=== PATIENT | male | born 1935 | race Caucasian/White ===

== ENCOUNTER 2016-12-15 07:46 | Inpatient (IN) | payer OTHER, MEDICARE ==
[2016-12-15] MEDS ORDERED: MORPHINE SULFATE 2 MG/ML SYRINGE IVP ONE (08:04)
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
[2016-12-15] MEDS ORDERED: SODIUM CHLORIDE 0.9% 1,000 ML IV ONE (09:28)
[2016-12-15] MEDS ORDERED: HYDROmorphone 1 MG/ML 1 ML SYRINGE IVP PRN (09:29)
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
[2016-12-15 11:09] VITALS: BMI 33.5
[2016-12-15] MEDS: HYDROcodone/APAP 5-325MG 1 EACH TAB PO PRN (14:13)
[2016-12-15] MEDS: HEPARIN SODIUM,PORCINE 5,000 UNIT/ML 1 ML VIAL SQ SCH ×2 (14:14→20:47)
[2016-12-15] MEDS ORDERED: CALCIUM CARBONATE 500 MG CHEWABLE PO PRN (14:51)
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
[2016-12-15] MEDS ORDERED: ONDANSETRON 4 MG/2 ML VIAL IVP PRN (18:27)
[2016-12-16] MEDS: HEPARIN SODIUM,PORCINE 5,000 UNIT/ML 1 ML VIAL SQ SCH ×2 (08:03→20:51)
[2016-12-16 15:42] LABS: Basophils % (A) 0 %; CH 31.8; CHCM 33.7; Eosinophils % (A) 0 %; HCT 34.3 % (39.0-53.0); HDW 2.55; HGB 11.5 gm/dL (13.0-17.5); Luc % (Auto) 2; Lymphocytes # (A) 0.5 k/uL (1.0-4.8); Lymphocytes % (A) 8 %; MCH 31.7 pg (25.0-35.0); MCHC 33.5 g/dL (31.0-37.0); MCV 94.7 fL (80.0-100.0); Mean Platelet Volume 7.7; Monocytes # (A) 0.6 k/uL (0-1.0); Monocytes % (A) 9 %; Neutrophils % (A) 81 %; RBC 3.63 m/uL (4.30-5.90); WBC 6.2 k/uL (3.8-10.6); WBC (Perox) 6.64
[2016-12-16 15:48] LABS: INR 1.2 (<1.1); Prothrombin Time 11.8 sec (9.0-12.0)
[2016-12-16 15:53] LABS: Anion Gap 6 mmol/L; Blood Urea Nitrogen 14 mg/dL (9-20); Calcium 8.5 mg/dL (8.4-10.2); Carbon Dioxide 28 mmol/L (22-30); Chloride 103 mmol/L (98-107); Glucose 175 mg/dL (74-99); Non-African American GFR(MDRD) >60 (>60 ml/min/1.73 sqM); Potassium 4.1 mmol/L (3.5-5.1); Sodium 137 mmol/L (137-145)
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
[2016-12-17] MEDS: HYDROcodone/APAP 5-325MG 1 EACH TAB PO PRN (00:59)
[2016-12-17] MEDS: HEPARIN SODIUM,PORCINE 5,000 UNIT/ML 1 ML VIAL SQ SCH ×2 (08:38→20:56)
[2016-12-17] MEDS: traMADol 50 MG TAB PO SCH ×4 (08:39→21:00)
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
--- NOTE | 2016-12-17 11:44 | XR ---
EXAMINATION TYPE: XR chest 1V DATE OF EXAM: 12/17/2016 9:47 AM COMPARISON: 12/15/2016 HISTORY: 81-year-old male COPD preoperative exam before knee surgery TECHNIQUE: Single frontal view of the chest is obtained. FINDINGS: Heart appears borderline enlarged. There is a large retrocardiac density with air lucency. Mild inter stitial opacities are also noted with some hazy left basilar opacity. IMPRESSION: 1. Suspect a large hiatal hernia into the lower chest. 2. Correlate to exclude mild CHF with pulmonary vascular congestion. 3. Trace left pleural effusion or some basilar atelectasis.
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
[2016-12-17 15:31] LABS: Appearance,Urine Cloudy (Clear); Bacteria,Urine Occasional /hpf; Bilirubin,Urine Negative (Negative); Glucose,Urine (UA) 3+ (Negative); Leukocyte Esterase,Urine Large (Negative); Mucus,Urine Moderate /hpf; Nitrite,Urine Negative (Negative); Particle Count 8701; Protein,Urine 1+ (Negative); RBC,Urine 55 /hpf (0-5); Specific Gravity,Urine 1.016 (1.001-1.035); UA Billing (MACRO vs. MICRO) MICRO; Urobilinogen,Urine <2.0 mg/dL (<2.0); WBC,Urine 83 /hpf (0-5)
[2016-12-17 17:43] LABS: Ketones,Urine 3+ (Negative)
[2016-12-18 07:08] LABS: Basophils % (A) 0 %; CHCM 34.4; Eosinophils % (A) 1 %; HCT 30.7 % (39.0-53.0); HDW 2.75; HGB 10.5 gm/dL (13.0-17.5); Luc # (Auto) 0.19; Luc % (Auto) 5; Lymphocytes # (A) 0.6 k/uL (1.0-4.8); Lymphocytes % (A) 15 %; MCH 32.1 pg (25.0-35.0); MCHC 34.4 g/dL (31.0-37.0); MCV 93.5 fL (80.0-100.0); Mean Platelet Volume 7.3; Monocytes # (A) 0.6 k/uL (0-1.0); Monocytes % (A) 13 %; Neutrophils # (A) 2.8 k/uL (1.3-7.7); Neutrophils % (A) 66 %; RBC 3.28 m/uL (4.30-5.90); RDW 13.1 % (11.5-15.5); WBC 4.2 k/uL (3.8-10.6); WBC (Perox) 4.78
[2016-12-18 07:17] LABS: ALT 38 U/L (21-72); AST 31 U/L (17-59); Alkaline Phosphatase 50 U/L (38-126); Anion Gap 5 mmol/L; Blood Urea Nitrogen 10 mg/dL (9-20); Carbon Dioxide 28 mmol/L (22-30); Chloride 103 mmol/L (98-107); Glucose 126 mg/dL (74-99); Magnesium 1.8 mg/dL (1.6-2.3); Non-African American GFR(MDRD) >60 (>60 ml/min/1.73 sqM); Phosphorous 2.6 mg/dL (2.5-4.5); Potassium 3.7 mmol/L (3.5-5.1); Sodium 136 mmol/L (137-145); Total Bilirubin 0.9 mg/dL (0.2-1.3)
[2016-12-18] MEDS: traMADol 50 MG TAB PO SCH ×3 (10:40→18:25)
--- NOTE | 2016-12-18 12:21 | PN ---
Mr. Rodolfo Garcia is an 81-year-old male has a fall with tibia fibular fracture. Patient has comminuted fracture and was open reduction internal fixation and scheduled for surgery today. Hemodynamic status is stable. Blood pressure 140/76, respiratory rate 16, pulse 83, temperature 97, saturation 96%. HEENT: Unremarkable. NECK: Supple. LUNGS: Good air entry bilaterally. HEART: Regular rate and rhythm. ABDOMEN: Soft. NEUROLOGICAL EXAMINATION: The patient had some episodes of confusion. Work-up has been performed, which revealed possible urinary tract infection. Culture results and reports are pending. However, urinalysis suggestive of ongoing infection. Patient empirically has been started on Rocephin. Other laboratory data reviewed. Medications reviewed as well. White cell count 4200, hemoglobin 10, hematocrit 30, platelet count 124,000. Sodium 137, potassium 3.7. BUN 10., creatinine 0.59. Chest x-ray performed on 12/17/2016 reviewed. Hiatal hernia is present. Mild interstitial edema and pleural effusion cannot be excluded. IMPRESSION: 1. Status post fall and left tibia-fibula fracture. 2. Altered mental status and encephalopathy related to baseline dementia, pain medications, systemic inflammatory response syndrome like process sepsis associated with urinary tract infection. The patient has been started on IV Rocephin. 3. Some component of confusion and will monitor and observe, likely related to above.
[2016-12-18] MEDS ORDERED: IV FLUID CONTINUATION 1,000 ML IV ONE (14:06)
[2016-12-18] MEDS ORDERED: MIDAZOLAM 2 MG/2 ML VIAL ONE (14:43)
[2016-12-18] MEDS ORDERED: MORPHINE SULFATE (PF) 0.3 MG/0.3 ML SYR ONE (14:43)
[2016-12-18] MEDS ORDERED: KETAMINE 10 MG/ML 20 ML VIAL ONE (14:43)
[2016-12-18] MEDS ORDERED: SODIUM CHLORIDE 0.9% 50 ML with ceFAZolin 2,000 MG IV ONE ×2 (14:52)
[2016-12-18] MEDS ORDERED: ceFAZolin 1,000 MG in SODIUM CHLORIDE 0.9% 1,000 ML IRRIGATION ONE (15:23)
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
[2016-12-18] MEDS ORDERED: HYDROcodone/APAP 7.5-325MG 1 EACH TAB PO PRN (16:22)
[2016-12-18] MEDS ORDERED: NALOXONE 0.4 MG/ML 1 ML VIAL IV PRN ×2 (16:22→17:21)
[2016-12-18] MEDS ORDERED: Acetaminophen-Codeine 300-30mg TAB PO PRN (16:22)
[2016-12-18] MEDS ORDERED: MORPHINE SULFATE 2 MG/ML SYRINGE IVP PRN (16:22)
[2016-12-18] MEDS ORDERED: LACTATED RINGERS 1,000 ML IV ONE (16:32)
--- NOTE | 2016-12-18 16:32 | XR ---
FLUOROSCOPY 13 seconds of fluoroscopy time were utilized during internal fixation of the proximal left tibia. 2 i mages document the procedure.
[2016-12-18] MEDS ORDERED: diphenhydrAMINE 50 MG/ML 1 ML VIAL IVP PRN (17:21)
[2016-12-18] MEDS: HEPARIN SODIUM,PORCINE 5,000 UNIT/ML 1 ML VIAL SQ SCH (22:26)
[2016-12-19] MEDS: MORPHINE SULFATE 2 MG/ML SYRINGE IVP PRN ×2 (00:05→10:26)
[2016-12-19] MEDS: ceFAZolin 2 GM in SODIUM CHLORIDE 0.9% 100 ML IVPB SCH ×2 (00:22→08:18)
--- NOTE | 2016-12-19 08:08 | P.PN ---
Progress Note - Text 0845 Anesthesia POD 1. Patient is status post ORIF of left tibial plateau fracture under spinal anesthesia with intra-thecal preservative free morphine the 100 g. Minimal pruritus, good post-op analgesia, and no headache or other complications.
[2016-12-19] MEDS: HEPARIN SODIUM,PORCINE 5,000 UNIT/ML 1 ML VIAL SQ SCH ×2 (08:18→20:31)
[2016-12-19] MEDS: traMADol 50 MG TAB PO SCH ×4 (08:18→20:31)
[2016-12-19] MEDS: HYDROcodone/APAP 5-325MG 1 EACH TAB PO PRN ×2 (09:23→16:36)
[2016-12-19 09:47] LABS: Basophils % (A) 0 %; CH 32.1; CHCM 34.4; Eosinophils % (A) 0 %; HCT 28.5 % (39.0-53.0); HDW 2.83; HGB 9.8 gm/dL (13.0-17.5); Luc # (Auto) 0.21; Luc % (Auto) 4; Lymphocytes # (A) 0.9 k/uL (1.0-4.8); Lymphocytes % (A) 15 %; MCH 32.4 pg (25.0-35.0); MCHC 34.5 g/dL (31.0-37.0); MCV 93.9 fL (80.0-100.0); Mean Platelet Volume 7.9; Monocytes # (A) 0.8 k/uL (0-1.0); Monocytes % (A) 14 %; Neutrophils # (A) 3.9 k/uL (1.3-7.7); Neutrophils % (A) 67 %; RBC 3.03 m/uL (4.30-5.90); RDW 13.2 % (11.5-15.5); WBC 5.9 k/uL (3.8-10.6); WBC (Perox) 5.63
--- NOTE | 2016-12-19 10:19 | PN ---
Rodolfo Garcia who is seen, evaluated, and examined. He is postop day #1 of left tibiofibular repair. Clinically doing well, awake, alert. His mental status is significantly improved compared to last 24 to 48 hours. His blood pressure 140/60, respiratory rate 16, pulse 88, temperature 98, saturation 96% on 2 L oxygen. HEENT: Unremarkable. NECK: Supple. LUNGS: Good air entry bilaterally without significant rales, rhonchi or rub. HEART: Regular rate and rhythm, S1 and S2 audible. Abdomen is soft. No rebound or rigidity. EXTREMITIES: +1 peripheral pulses. NEUROLOGICAL EXAMINATION: Otherwise, awake, alert. Urine culture results, no growth so far. His chest x-ray performed 12/17/2016 has been reviewed. Large hiatal hernia is present. Some interstitial edema cannot be excluded. Current medications reviewed. IMPRESSION: 1. Left tibiofibular fracture postoperative day #1 of open reduction and internal fibrillation of left tibial plateau under spinal anesthesia. 2. Urinary tract infection. 3. Altered mental status, multifactorial process. 4. Large hiatal hernia. Plan and recommendation is to continue supportive care. Follow clinical course for pain management. Continue empiric antibiotics. Maintain patient on DVT prophylaxis and will initiate patient on peptic ulcer disease prophylaxis as well. Will follow.
[2016-12-19] MEDS: PANTOPRAZOLE 40 MG TABLET PO SCH (20:31)
[2016-12-20] MEDS: HYDROcodone/APAP 5-325MG 1 EACH TAB PO PRN ×2 (04:20→11:09)
[2016-12-20] MEDS: PANTOPRAZOLE 40 MG TABLET PO SCH (09:14)
[2016-12-20] MEDS: traMADol 50 MG TAB PO SCH ×2 (09:14→16:02)
[2016-12-20] MEDS: HEPARIN SODIUM,PORCINE 5,000 UNIT/ML 1 ML VIAL SQ SCH (09:14)
[2016-12-20] MEDS ORDERED: BISACODYL 10 MG SUPP RECTAL STA (11:24)
--- NOTE | 2016-12-20 11:47 | P.PN ---
Subjective Principal diagnosis: Left tibial plateau fracture Patient seen today resting in his hospital bed. Patient admits to some increasing discomfort in the left knee. Denies any chest pain or shortness of breath. She states he hasn't had a bowel movement yet. Denies any fevers or chills. Objective - Vital Signs Vital signs: Vital Signs Temp 98.0 F 12/20/16 07:42 Pulse 98 12/20/16 07:42 Resp 16 12/20/16 07:42 BP 147/73 12/20/16 07:42 Pulse Ox 93 L 12/20/16 07:42 Intake & Output 12/19/16 12/20/16 12/20/16 18:59 06:59 18:59 Intake Total 1440 1000 480 Output Total 3900 725 Balance -2460 1000 -245 Intake: IV 1000 Sodium Chloride 0.9% 1, 900 000 ml @ 100 mls/hr IV . Q10H ONE Rx#:[id number] ceFAZolin 2 gm In Sodium 100 Chloride 0.9% 100 ml @ 100 mls/hr IVPB Q8HR COLLIN Rx#:[id number] Oral 1440 480 Output: Urine 3900 725 Uretheral (Poon) 1100 Other: Voiding Method Urinal Urinal # Voids 5 - Exam Left lower extremity: Patient has hinge knee brace locked in full extension, Derek bandages in good position. Incision is clean, dry and intact. Notable swelling surrounding the left knee, also edema in the lower extremity. Calf is soft, no tenderness with palpation. His dorsal pedis pulses 2+. Plantar flexion, dorsiflexion, EHL, FHL are intact. Sensory exam to light touch throughout the extremity is intact. - Labs CBC & Chem 7: 12/19/16 07:23 12/18/16 06:34 Assessment and Plan Plan: Assessment: 1. Postop day #2 status post ORIF left tibial plateau fracture 2. Constipation Plan: 1. Pain control, continue supportive oral medication 2. Use stool softeners and suppository today to help with constipation 3. Nonweightbearing, continue use of brace 4. Daily dressing changes/ice and elevate 5. GI and DVT prophylaxis, continue heparin in hospital, we'll discharge to rehab on Xarelto 10 mg 6. Medical recommendations 7. Discharge planning: Patient will likely be discharged to rehab today Time with Patient: Less than 30
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
[2016-12-20 14:54] VITALS: BP 128/71; PULSE 96; RESP 15; TEMP 97.3
--- NOTE | 2016-12-20 17:52 | PN ---
Rodolfo Garcia is an 81-year-old male, seen, evaluated, examined. Patient has been clinically doing well, awake and alert, breathing comfortably. He is postop day #2 for open reduction and internal fixation and left tibia plateau fracture. Clinically overall hemodynamically stable. Last set of vitals include blood pressure is 147/73, respiratory rate 15, pulse 96, temperature 97.2%. HEENT: Unremarkable. NECK: Supple. LUNGS: Good air entry bilaterally. HEART: Regular rate and rhythm. ABDOMEN: Soft. NEUROLOGICAL EXAMINATION: Awake and alert. No focal neurological deficits. IMPRESSION: 1. Status post fall with left tibial plateau fracture. 2. Urinary tract infection with cultures are negative. Patient has been treated with IV antibiotics. 3. Altered mental status, encephalopathy, likely due to multifactorial process including being hospitalized, baseline dementia and pain medications along with sepsis associated with urinary tract infection. Clinically has improved significantly and back to baseline. I agree with discharge planning and follow-up in outpatient setting. Patient to follow the primary care provider Dr. Tate Del Cid.
== END 2016-12-20 18:16 | DRG 492 ==
LOC: EC 07:46 → INTOOBSV 09:28 → 3SUR 09:28 → OBSVTOIN 12-17 12:48
PROVIDERS: ADMIT Orthopaedic Surgery; ATTEND Orthopaedic Surgery
PROC: 0QSH04Z Reposition Left Tibia with Internal Fixation Device, Open Approach (ICD-10-PCS; principal; 2016-12-18 15:00)
DX: S82.142A Displaced bicondylar fracture of left tibia, initial encounter for closed fracture (principal); G93.40 Encephalopathy, unspecified; F03.90 Unspecified dementia, unspecified severity, without behavioral disturbance, psychotic disturbance, mood disturbance, and anxiety; N39.0 Urinary tract infection, site not specified; V89.2XXA Person injured in unspecified motor-vehicle accident, traffic, initial encounter; F41.9 Anxiety disorder, unspecified; K44.9 Diaphragmatic hernia without obstruction or gangrene; K59.00 Constipation, unspecified; Z82.49 Family history of ischemic heart disease and other diseases of the circulatory system; Z79.899 Other long term (current) drug therapy
CPT/HCPCS: 71010; 80048; 80053; 81001; 83735; 84100; 85025; 85610; 87086; 93005; 94760; 96361; 96372; 96374; 96375; 99285

== ENCOUNTER 2017-02-11 16:40 | Inpatient (IN) | payer MEDICARE ==
[2017-02-11 20:33] LABS: Basophils % (A) 0 %; CH 31.3; CHCM 32.7; Eosinophils # (A) 0.1 k/uL (0-0.7); Eosinophils % (A) 1 %; HCT 36.4 % (39.0-53.0); HDW 2.65; Luc # (Auto) 0.18; Luc % (Auto) 2; Lymphocytes # (A) 0.6 k/uL (1.0-4.8); Lymphocytes % (A) 7 %; MCH 31.7 pg (25.0-35.0); MCHC 32.9 g/dL (31.0-37.0); MCV 96.1 fL (80.0-100.0); Mean Platelet Volume 6.6; Monocytes # (A) 0.8 k/uL (0-1.0); Monocytes % (A) 10 %; Neutrophils # (A) 6.6 k/uL (1.3-7.7); Neutrophils % (A) 80 %; RBC 3.79 m/uL (4.30-5.90); RDW 13.1 % (11.5-15.5); WBC 8.2 k/uL (3.8-10.6); WBC (Perox) 8.98
[2017-02-11 20:41] LABS: Anion Gap 11 mmol/L; Blood Urea Nitrogen 15 mg/dL (9-20); Carbon Dioxide 26 mmol/L (22-30); Chloride 103 mmol/L (98-107); Glucose 100 mg/dL (74-99); Non-African American GFR(MDRD) >60 (>60 ml/min/1.73 sqM); Potassium 4.2 mmol/L (3.5-5.1); Sodium 140 mmol/L (137-145)
[2017-02-11] MEDS: SODIUM CHLORIDE 0.9% 1,000 ML IV SCH (20:45)
[2017-02-12] MEDS: SODIUM CHLORIDE 0.9% 1,000 ML IV SCH ×2 (07:43→14:57)
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
[2017-02-12 09:39] LABS: ALT 734 U/L (21-72); AST 325 U/L (17-59); Alkaline Phosphatase 119 U/L (38-126); Anion Gap 9 mmol/L; Blood Urea Nitrogen 11 mg/dL (9-20); Calcium 9.2 mg/dL (8.4-10.2); Carbon Dioxide 25 mmol/L (22-30); Chloride 105 mmol/L (98-107); Glucose 107 mg/dL (74-99); Non-African American GFR(MDRD) >60 (>60 ml/min/1.73 sqM); Potassium 4.2 mmol/L (3.5-5.1); Sodium 139 mmol/L (137-145); Total Bilirubin 3.9 mg/dL (0.2-1.3)
[2017-02-12 13:43] LABS: Hepatitis B Surface Ag Index 0.07
[2017-02-12 13:49] LABS: Hepatitis B Core IgM Index 0.04
[2017-02-12 14:01] LABS: Hepatitis C Virus IgG Index 0.01
[2017-02-12 14:03] LABS: Hepatitis C Virus IgG Ab Negative (Negative)
[2017-02-12] MEDS ORDERED: traMADol 50 MG TAB PO PRN (14:22)
[2017-02-12] MEDS ORDERED: ALPRAZolam 0.25 MG TAB PO PRN (14:25)
[2017-02-12] MEDS ORDERED: HYDROmorphone 1 MG/ML 1 ML SYRINGE IVP PRN (14:25)
--- NOTE | 2017-02-12 14:51 | XR ---
EXAMINATION TYPE: XR chest 1V portable DATE OF EXAM: 02/12/2017 2:46 PM CLINICAL HISTORY: Difficulty breathing and CHF. TECHNIQUE: Single AP portable upright view of the chest is obtained. COMPARISON: Chest x-ray from December 17, 2016 FINDINGS: There is chronic parenchymal change seen bilaterally. There is stable mild cardiomegaly. R etrocardiac opacity consistent with large hiatal hernia or fixed intrathoracic stomach is redemonstra radha. Cannot exclude small bilateral pleural effusions which is not changed from prior study. No new s uspicious focal airspace opacity or pneumothorax is seen bilaterally. Osseous structures are intact. IMPRESSION: Redemonstration of large hiatal hernia or intrathoracic stomach. There is persistent mild cardiomegaly with perhaps small bilateral pleural effusions. No significant change from prior study is seen. No new suspicious focal infiltrate is noted.
[2017-02-12] MEDS: ASPIRIN 81 MG CHEW PO SCH (14:58)
[2017-02-12 16:10] LABS: Appearance,Urine Clear (Clear); Bilirubin,Urine 1+ (Negative); Glucose,Urine (UA) 3+ (Negative); Ketones,Urine Negative (Negative); Leukocyte Esterase,Urine Negative (Negative); Mucus,Urine Rare /hpf; Nitrite,Urine Negative (Negative); Particle Count 430; Protein,Urine Negative (Negative); RBC,Urine 11 /hpf (0-5); Specific Gravity,Urine 1.005 (1.001-1.035); UA Billing (MACRO vs. MICRO) MICRO; Urobilinogen,Urine <2.0 mg/dL (<2.0); WBC,Urine 1 /hpf (0-5)
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
[2017-02-12] MEDS ORDERED: MELATONIN 3 MG TABLET PO SCH (21:00)
[2017-02-13] MEDS: SODIUM CHLORIDE 0.9% 1,000 ML IV SCH ×2 (06:23→13:39)
[2017-02-13] MEDS ORDERED: IV FLUID CONTINUATION 350 ML IV ONE (07:18)
[2017-02-13] MEDS ORDERED: GLUCAGON 1 MG/ML VIAL ONE (07:30)
[2017-02-13] MEDS ORDERED: PROPOFOL 10 MG/ML 20 ML VIAL IV ONE (07:30)
[2017-02-13] MEDS ORDERED: PANTOPRAZOLE 40 MG TABLET PO SCH (07:30)
[2017-02-13] MEDS ORDERED: SODIUM CHLORIDE 0.9% 1,000 ML IV ONE (08:08)
[2017-02-13] MEDS ORDERED: IOHEXOL 300 MG/ML 50 ML BOTTLE MISCELLANE ONE (08:10)
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
--- NOTE | 2017-02-13 08:52 | FL ---
EXAMINATION TYPE: FL ERCP pancreatic duct only DATE OF EXAM: 02/13/2017 8:31 AM CLINICAL HISTORY: Common bile duct stones. TECHNIQUE: Fluoroscopy. COMPARISON: None. FINDINGS: Fluoroscopic guidance was provided during year CT procedure performed by GI doctor, Dr Waqar street. A total of 3 minutes 37 seconds of fluoroscopic time was utilized during the procedure and severa l spot images are acquired. There is only successful cannulation and opacification of pancreatic duct . Please refer to procedure note for further details as I was not present nor performed procedure. IMPRESSION: As Above.
[2017-02-13] MEDS ORDERED: MULTIVITAMINS, THERA 1 EACH TAB PO SCH (09:00)
[2017-02-13 09:42] LABS: Basophils % (A) 0 %; CH 31.8; CHCM 33.3; Eosinophils # (A) 0.1 k/uL (0-0.7); Eosinophils % (A) 2 %; HCT 34.3 % (39.0-53.0); HGB 11.2 gm/dL (13.0-17.5); Luc # (Auto) 0.17; Luc % (Auto) 4; Lymphocytes # (A) 0.4 k/uL (1.0-4.8); Lymphocytes % (A) 8 %; MCH 31.3 pg (25.0-35.0); MCHC 32.7 g/dL (31.0-37.0); MCV 95.9 fL (80.0-100.0); Mean Platelet Volume 7.7; Monocytes # (A) 0.4 k/uL (0-1.0); Monocytes % (A) 8 %; Neutrophils # (A) 3.7 k/uL (1.3-7.7); Neutrophils % (A) 79 %; RBC 3.58 m/uL (4.30-5.90); RDW 12.8 % (11.5-15.5); WBC 4.7 k/uL (3.8-10.6); WBC (Perox) 5.24
[2017-02-13 09:52] LABS: ALT 434 U/L (21-72); AST 109 U/L (17-59); Alkaline Phosphatase 109 U/L (38-126); Anion Gap 8 mmol/L; Blood Urea Nitrogen 6 mg/dL (9-20); Calcium 8.9 mg/dL (8.4-10.2); Carbon Dioxide 27 mmol/L (22-30); Chloride 104 mmol/L (98-107); Glucose 133 mg/dL (74-99); Non-African American GFR(MDRD) >60 (>60 ml/min/1.73 sqM); Sodium 139 mmol/L (137-145); Total Bilirubin 2.3 mg/dL (0.2-1.3); Total Protein 5.4 g/dL (6.3-8.2)
[2017-02-13] MEDS: ASPIRIN 81 MG CHEW PO SCH (09:56)
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
[2017-02-13] MEDS ORDERED: LEVOFLOXACIN 500MG-D5W PMX 500 MG in DEXTROSE/WATER 1 100ML.BAG IVPB ONE (12:00)
[2017-02-13] MEDS ORDERED: INDOMETHACIN 50MG SUPPOSITORY RECTAL ONE (12:00)
--- NOTE | 2017-02-13 13:14 | DS ---
DATE OF ADMISSION: 02/11/2017 DATE OF DISCHARGE: FINAL DIAGNOSES: 1. Elevated LFTs, AST, ALT, rule out choledocholithiasis. 2. Cholelithiasis and abdominal pain. 3. Hiatal hernia with stomach. 4. 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 5. Hyperbilirubinemia. 6. Increased random blood sugar. 7. Anemia, normocytic anemia of chronic disease. 8. History of recent left open reduction internal fixation of the tibial plateau fracture. 9. History of dementia. 10. History of degenerative joint disease. 11. History of urinary tract infection. 12. History of hemorrhoids. 13. History of appendectomy. 14. History of hernia surgery. 15. Remote history of EtOH. 16. FULL CODE. DISCHARGE DISPOSITION: Patient will be transferred to [facility] in stable condition with guarded prognosis. Total time taken is 35 minutes. I have discussed the case at length with the staff and the patient and gastroenterology team. HISTORY OF PRESENT ILLNESS: This 81-year-old gentleman with a past medical history of multiple medical problems admitted with abdominal pain, elevated LFTs and multiple symptomatology. The patient was though to have CBD obstruction. AST, ALT was elevated. Alkaline phosphatase was normal. Gastroenterology attempted ERCP which CBD could not be cannulated because of the extensive hiatal hernia with stomach and as well as duodenal diverticulum. The local surgeons recommended the patient to be transferred to [facility] for further evaluation and treatment. So the patient will be transferred in stable condition with guarded prognosis. On exam, vitals are stable. CARDIOVASCULAR SYSTEM: S1, S2 muffled. ABDOMEN: Soft and nontender. NERVOUS SYSTEM: No focal deficits. LABS: WBC 4.7, hemoglobin 11.2, platelets 147, total bilirubin is 2.3. AST is 109, ALT 434 alkaline phosphatase is 109. Albumin is 3.4. The hepatitis panel is negative. The current medications are as follows: 1. Xanax 0.25 t.i.d. p.r.n. 2. Aspirin 81 mg daily. 3. Dilaudid 0.5 q.6 p.r.n. 4. Levaquin 500 mg IV given once. 5. Melatonin 3 mg p.o. q.h.s. 6. Multivitamin one p.o. daily. 7. Protonix 40 mg p.o. daily. 8. Ultram 50 mg q.h.s. p.r.n.
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
[2017-02-13 16:04] VITALS: BP 130/74; PULSE 76; RESP 18; TEMP 98.2
--- NOTE | 2017-02-14 11:21 | ECHOF ---
Referral Reason:cp MEASUREMENTS -------- HEIGHT: 180.3 cm WEIGHT: 154.7 kg BP: 132/79 RVIDd: 3.7 cm (< 3.3) IVSd: 1.1 cm (0.6 - 1.1) LVIDd: 3.8 cm (3.9 - 5.3) LVPWd: 1.1 cm (0.6 - 1.1) IVSs: 1.6 cm LVIDs: 2.4 cm LVPWs: 1.6 cm LAESV Index (A-L): 25.16 ml/m Ao Diam: 3.7 cm (2.0 - 3.7) AV Cusp: 2.2 cm (1.5 - 2.6) LA Diam: 3.9 cm (2.7 - 3.8) MV EXCURSION: 24.078 mm (> 18.000) MV EF SLOPE: 102 mm/s (70 - 150) EPSS: 0.6 cm MV E Kevon: 1.06 m/s MV DecT: 218 ms MV A Kevon: 0.76 m/s MV E/A Ratio: 1.39 FINDINGS -------- Sinus rhythm. This was a technically adequate study. The left ventricular size is normal. There is borderline concentric left ventricular hypertrophy. Overall left ventricular systolic function is normal with, an EF between 55 - 60 %. The right ventricle is mildly enlarged. Normal LA size by volume 22+/-6 ml/m2. The right atrium is normal in size. Aortic valve is trileaflet and is mildly thickened. Mild mitral annular calcification present. There is trace mitral regurgitation. Trace tricuspid regurgitation present. There is no pulmonic regurgitation present. The aortic root size is normal. The inferior vena cava is mildly dilated. There is a trivial pericardial effusion present. CONCLUSIONS -------- 1. Sinus rhythm. 2. Trace tricuspid regurgitation present. 3. There is no pulmonic regurgitation present. 4. The aortic root size is normal. 5. The inferior vena cava is mildly dilated. 6. There is a trivial pericardial effusion present. 7. This was a technically adequate study. 8. There is borderline concentric left ventricular hypertrophy. 9. Overall left ventricular systolic function is normal with, an EF between 55 - 60 %. 10. The right ventricle is mildly enlarged. 11. Normal LA size by volume 22+/-6 ml/m2. 12. Aortic valve is trileaflet and is mildly thickened. 13. Mild mitral annular calcification present. 14. There is trace mitral regurgitation. ENVIRONMENTAL PROGRAMS MANAGER: Andrew Riley RDCS
== END 2017-02-13 19:55 | disposition short-term general hospital (02) | DRG 446 ==
LOC: 4MS4W 19:18
PROVIDERS: ADMIT Internal Medicine; ATTEND Internal Medicine
PROC: BF181ZZ Fluoroscopy of Pancreatic Ducts using Low Osmolar Contrast (ICD-10-PCS; 2017-02-13)
PROC: 0FJD8ZZ Inspection of Pancreatic Duct, Via Natural or Artificial Opening Endoscopic (ICD-10-PCS; principal; 2017-02-13 12:00)
DX: K80.71 Calculus of gallbladder and bile duct without cholecystitis with obstruction (principal); F03.90 Unspecified dementia, unspecified severity, without behavioral disturbance, psychotic disturbance, mood disturbance, and anxiety; D63.8 Anemia in other chronic diseases classified elsewhere; R74.8 Abnormal levels of other serum enzymes; K44.9 Diaphragmatic hernia without obstruction or gangrene; R07.89 Other chest pain; R73.09 Other abnormal glucose; K57.10 Diverticulosis of small intestine without perforation or abscess without bleeding; M19.90 Unspecified osteoarthritis, unspecified site; G89.29 Other chronic pain; M54.9 Dorsalgia, unspecified; R60.0 Localized edema; K64.9 Unspecified hemorrhoids; H26.9 Unspecified cataract; Z87.440 Personal history of urinary (tract) infections; Z90.49 Acquired absence of other specified parts of digestive tract; Z82.49 Family history of ischemic heart disease and other diseases of the circulatory system; Z79.82 Long term (current) use of aspirin; Z79.891 Long term (current) use of opiate analgesic; Z79.899 Other long term (current) drug therapy; Z80.9 Family history of malignant neoplasm, unspecified; Z87.828 Personal history of other (healed) physical injury and trauma; Z87.81 Personal history of (healed) traumatic fracture
CPT/HCPCS: 43260; 71010; 74329; 80048; 80053; 80074; 81001; 83605; 84484; 85025; 93005; 93306